=== PATIENT | male | born 1980 | race African-American/Black ===

== ENCOUNTER 2021-11-14 02:31 | Emergency (ER) | payer OTHER, SELFPAY ==
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
--- NOTE | ~2021-11-14 | XR_ITS ---
XR lumbar spine 2-3V DATE: 11/14/2021 03:47 INDICATION: Right back pain TECHNIQUE: AP, lateral, coned lateral lumbosacral views COMPARISON: None FINDINGS: There is minimal dextroscoliosis. There are 6 functional lumbar vertebrae. There is severe degenerative disc disease between 6 function al lumbar vertebra and the sacrum. The lumbar interspaces otherwise appear relatively preserved. No fracture or bone destruction is detected. Included lower thoracic and lumbar pedicles are intact. The sacroiliac joints are normal. IMPRESSION: Severe degenerative disc disease between 6 functional lumbar vertebra and sacrum Minimal dextroscoliosis Reviewed, dictated and finalized at location B. IMPRESSION: Severe degenerative disc disease between 6 functional lumbar verteb ra and sacrum Minimal dextroscoliosis
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
[2021-11-14 02:37] VITALS: BP 125/84; PULSE 73; RESP 18; TEMP 36.6; O2SAT 100
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
== END 2021-11-14 04:06 | disposition home or self-care (01) ==
PROVIDERS: Emergency Provider Emergency Medicine
DX: S46.911A Strain of unspecified muscle, fascia and tendon at shoulder and upper arm level, right arm, initial encounter (principal); S29.012A Strain of muscle and tendon of back wall of thorax, initial encounter; S39.012A Strain of muscle, fascia and tendon of lower back, initial encounter; V49.50XA Passenger injured in collision with unspecified motor vehicles in traffic accident, initial encounter
CPT/HCPCS: 72070; 72100; 73030; 99284

== ENCOUNTER 2023-10-27 06:09 | Emergency (ER) | payer BC, SELFPAY ==
[2023-10-27 06:12] VITALS: BP 131/91; PULSE 97; RESP 15; TEMP 36.5; O2SAT 97
--- NOTE | 2023-10-27 06:20 | ED.GENADULT ---
HPI - General Adult General Chief complaint: Abdominal Pain Stated complaint: constipation Time Seen by Provider: 10/27/23 06:10 History of Present Illness HPI narrative: Patient is a 43-year-old male who presents ER with reports of constipation. Ongoing over the last week. He has had improvement in his bowel movements over last 2 days for they are no longer hard any does not have to strain. Unfortunately he has been having pain with his bowel movements in his also had some blood with his bowel movements of the last few days. No history of hemorrhoids. No abdominal pain. No fevers or chills. No alleviating factors. Related Data Allergies Allergy/AdvReac Type Severity Reaction Status Date / Time No Known Allergies Allergy Verified 10/27/23 06:20 Review of Systems Constitutional: Constitutional: Reports no additional constitutional complaints Gastrointestinal: Gastrointestinal: Reports abdominal pain, Reports constipation, Denies diarrhea, Denies nausea and Denies vomiting Genitourinary: Genitourinary: Reports no additional male genitourinary complaints PMFSH Past Medical History Medical History (Updated 10/27/23 @ 06:24 by Delonte Krishnamurthy MD) Healthy adult male Surgical History Surgical History (Updated 10/27/23 @ 06:21 by Delonte Krishnamurthy MD) No pertinent past surgical history Exam Narrative: GENERAL: Well-appearing, well-nourished, and in no acute distress. HEAD: Normocephalic, atraumatic. ENT: Mucous membranes moist. ABDOMEN: Soft, nontender, nondistended. Normal rectum w/o fissure or hemorrhoid. EXTREMITIES: Normal range of motion. No edema. NEURO: Alert and oriented x3. PSYCH: Normal mood and affect. Course Course Emergency Course: Discussed exam and diagnosis. Suspect hemorrhoid at the anal verge. Does not feel comfortable using suppositories. Discussed conservative therapy with topical steroid as well as increased fiber/fluid and stool softeners. Vital Signs Vital signs: Vital Signs Temperature 97.7 F 10/27/23 06:12 Pulse Rate 97 10/27/23 06:12 Respiratory Rate 15 10/27/23 06:12 Blood Pressure 131/91 H 10/27/23 06:12 Pulse Oximetry 97 10/27/23 06:12 Oxygen Delivery Room Air 10/27/23 06:12 Temperature 97.7 F 10/27/23 06:12 Pulse Rate 97 10/27/23 06:12 Respiratory Rate 15 10/27/23 06:12 Blood Pressure 131/91 H 10/27/23 06:12 Pulse Oximetry 97 10/27/23 06:12 Oxygen Delivery Room Air 10/27/23 06:12 Medical Decision Making Vital Signs Vital Signs: Vital Signs Temperature 97.7 F 10/27/23 06:12 Pulse Rate 97 10/27/23 06:12 Respiratory Rate 15 10/27/23 06:12 Blood Pressure 131/91 H 10/27/23 06:12 Pulse Oximetry 97 10/27/23 06:12 Oxygen Delivery Room Air 10/27/23 06:12 Temperature 97.7 F 10/27/23 06:12 Pulse Rate 97 10/27/23 06:12 Respiratory Rate 15 10/27/23 06:12 Blood Pressure 131/91 H 10/27/23 06:12 Pulse Oximetry 97 10/27/23 06:12 Oxygen Delivery Room Air 10/27/23 06:12 Discharge Plan Discharge Clinical Impression: Hemorrhoid Patient Disposition: Home, Self-Care Condition: Stable Instructions: Hemorrhoids (ED) Additional Instructions: Return the ER if you have worsening pain, you cannot have a bowel movement, or you have additional concerns. Use topical steroid to help decrease inflammation. Use stool softeners to prevent having a firm bowel movement. Prescriptions: New hydrocortisone acetate 1 % ointment 1 applic topical TID 7 Days Qty: 28.4 0RF docusate sodium [Colace] 100 mg capsule 100 mg PO DAILY Qty: 7 0RF No Action ibuprofen 800 mg tablet 800 mg PO TID PRN (Reason: pain) Qty: 30 0RF cyclobenzaprine 10 mg tablet 10 mg PO TID PRN (Reason: muscle spasm) Qty: 21 0RF Follow-up/Referrals: Luciana Huertas MD [Physician] - 1 Week PHYSICIAN,HIGH [employer]CHO[employer] LANGUAGE TEACHER [Primary Care Provider] -
== END 2023-10-27 06:35 | disposition home or self-care (01) ==
LOC: ANHED 06:32
PROVIDERS: Emergency Provider Emergency Medicine
DX: K64.9 Unspecified hemorrhoids (principal)
CPT/HCPCS: 99283

== ENCOUNTER 2024-12-29 19:46 | Emergency (ER) | payer MEDICAID, SELFPAY ==
[2024-12-29 19:53] VITALS: BP 131/81; PULSE 81; RESP 18; TEMP 36.8; O2SAT 100
--- NOTE | 2024-12-29 19:56 | ED_ITS ---
HPI - Dental/Oral General Chief complaint: Dental/Oral Stated complaint: Dental Pain Time Seen by Provider: 12/29/24 20:00 Source: patient, RN notes reviewed and old records reviewed Mode of arrival: ambulatory Limitations: no limitations History of Present Illness HPI Narrative: 44-year-old male presents to the [facility] with right lower dental pain Over broken tooth. He has not seen a dentist recently. Swelling noted to the right lower jaw. Onset (ago): day(s) (1) Related Data Allergies Allergy/AdvReac Type Severity Reaction Status Date / Time No Known Allergies Allergy Verified 12/29/24 19:57 Review of Systems Review of Systems: All systems reviewed & are unremarkable except as noted in HPI and below Constitutional: Constitutional: Reports no additional constitutional complaints ENT: Reports as per HPI and Reports dental pain (Right lower) Cardiovascular: Cardiovascular: Reports no additional cardiovascular complaints, Denies chest pain and Denies dyspnea Respiratory: Respiratory: Reports no additional respiratory complaints, Denies chest congestion, Denies cough and Denies dyspnea Musculoskeletal: Musculoskeletal: Reports no additional musculoskeletal complaints Integumentary/Breasts: Skin/Breast: Reports system reviewed and no additional complaints, except as docu [facility] Past Medical History Medical History Healthy adult male Surgical History Surgical History No pertinent past surgical history Comments At the time of my signature, I reviewed and agree with the nursing past medical, surgical, social, and family history. There is no relevant family history pertinent to the patient complaint. Exam Const: General: cooperative, healthy appearing, comfortable, no acute distress, well developed, alert and well nourished Nutritional Appearance: well nourished Orientation/consciousness: patient oriented x3 Limitations: no limitations HENMT: Head: normal to inspection Mouth: Yes Normal oral and palatal mucosa present, Yes lip normal, Yes tongue normal and Yes moist mucous membranes Teeth and gingiva: abnormal tooth and associated gingiva (Right lower posterior molar tooth fracture, surrounding gingival erythema) and gingiva abnormal edematous (Right lower molar) Eyes: General: appearance normal, both eyes and all related structures Alignment and Position: alignment normal Neck: Neck: normal visual inspection, full ROM, no lymphadenopathy and no meningeal signs Chest: Chest palpation & inspection: normal inspection of the chest Resp: Effort & Inspection: normal respiratory effort and able to speak in complete sentences Cardio: Rate: regular rate Skin: General skin exam: normal color and no rashes or lesions noted Neuro: General: patient oriented x3, gait normal, moves all extremities and no meningeal signs Cognition (Neuro): normal cognition Speech: normal speech Gait exam (Neuro): Normal gait present Extrem: General: normal to inspection, full ROM, capillary refill normal and normal gait Psych: Appearance: grossly normal and well kempt Mental Status: mental status grossly normal Speech and movement: Normal speech and movement present and Clear speech present Affect: normal affect Attitude: cooperative Course Course Level of Care: Express Care Visit Vital Signs Vital signs: Vital Signs Temperature 98.3 F 12/29/24 19:53 Pulse Rate 81 12/29/24 19:53 Respiratory Rate 18 12/29/24 19:53 Blood Pressure 131/81 12/29/24 19:53 Pulse Oximetry 100 12/29/24 19:53 Oxygen Delivery Room Air 12/29/24 19:53 Temperature 98.3 F 12/29/24 19:53 Pulse Rate 81 12/29/24 19:53 Respiratory Rate 18 12/29/24 19:53 Blood Pressure 131/81 12/29/24 19:53 Pulse Oximetry 100 12/29/24 19:53 Oxygen Delivery Room Air 12/29/24 19:53 Reviewed MDM - Dental/Oral MDM Narrative Medical decision making narrative: Patient sitting in exam room. Patient is nontoxic, vitals stable. Patient presents with dental pain since yesterday Erythema, edema noted to the right lower gingiva Patient appropriate for outpatient treatment with a list of dental providers to follow-up with Discharge instructions reviewed with patient, as well as provided in writing per nursing staff. The instructions also include specific and strict return/GO TO THE ER as well as f/u information. All questions have been answered, and the patient deny any further questions with discharge and discharge plan. Some parts of this dictation were generated by voice recognition software and may contain typographical and/or grammatical inaccuracies. Differential Diagnosis Differential diagnosis: Likely gingival abscess, dental caries, toothache, dental abscess and fracture of tooth Critical Care Time Critical Care Time Critical Care Time: No Discharge Plan Discharge Clinical Impression: Dental caries, Dental abscess, Fracture of tooth Patient Disposition: Home Condition: Stable Instructions: Antibiotic Form, Dental Abscess (ED) Additional Instructions: Finish the entire course of antibiotics Jerome teeth twice daily and use a good mouthwash. After every time you eat be sure to use salt water rinses. Apply ice to face to help with pain. Take Tylenol alternating with Motrin as needed for pain. You can alternate every 4 hours You need to follow-up with a dental provider as soon as possible for further evaluation and treatment. A list of dental providers has been given to you Follow up with a Primary Care Provider (PCP) about medical needs. A PCP can help keep you healthy by preventive medicine and screening. Go to the ER for New or worsening symptoms. Patient Language: Mongolian Prescriptions: New penicillin V potassium 500 mg tablet 500 mg PO QID 10 Days Qty: 40 0RF Follow-up/Referrals: PHYSICIAN,MACHINE CANDLE MOLDER [Primary Care Provider] - Stand Alone Forms: Work/School Release IP Time of Disposition: 20:07
== END 2024-12-29 20:12 | disposition home or self-care (01) ==
PROVIDERS: Emergency Provider Nurse Practitioner
DX: K02.9 Dental caries, unspecified (principal); K04.7 Periapical abscess without sinus; S02.5XXA Fracture of tooth (traumatic), initial encounter for closed fracture; X58.XXXA Exposure to other specified factors, initial encounter
CPT/HCPCS: 99213; G0463